=== PATIENT | male | born 1955 | race Caucasian/White ===

== ENCOUNTER 2024-10-16 06:25 | Day surgery (SDC) | payer MEDICARE, SELFPAY ==
[2024-10-16 07:55] LABS: Glucose - Point of Care 113 mg/dl (70-99)
== END 2024-10-16 10:09 | disposition home or self-care (01) ==
LOC: GI 06:25
PROVIDERS: ATTENDING PHYSICIAN Internal Medicine
DX: Z12.11 Encounter for screening for malignant neoplasm of colon (principal); K57.30 Diverticulosis of large intestine without perforation or abscess without bleeding; R10.13 Epigastric pain; K44.9 Diaphragmatic hernia without obstruction or gangrene; K21.00 Gastro-esophageal reflux disease with esophagitis, without bleeding; K31.89 Other diseases of stomach and duodenum
CPT/HCPCS: 45380; 43239; 82962; 88305; 88342

== ENCOUNTER 2025-01-22 06:16 | Day surgery (SDC) | payer MEDICARE, SELFPAY ==
[2025-01-22 07:55] LABS: Glucose - Point of Care 113 mg/dl (70-99)
== END 2025-01-22 08:00 | disposition home or self-care (01) ==
LOC: GI 06:16
PROVIDERS: ATTENDING PHYSICIAN Internal Medicine
DX: R10.13 Epigastric pain (principal); Z53.9 Procedure and treatment not carried out, unspecified reason
CPT/HCPCS: 82962; G0378

== ENCOUNTER 2025-01-29 06:20 | Day surgery (SDC) | payer MEDICARE, SELFPAY ==
[2025-01-29 08:37] LABS: Glucose - Point of Care 119 mg/dl (70-99)
== END 2025-01-29 09:47 | disposition home or self-care (01) ==
LOC: GI 06:20
PROVIDERS: ATTENDING PHYSICIAN Internal Medicine
DX: K21.00 Gastro-esophageal reflux disease with esophagitis, without bleeding (principal); K44.9 Diaphragmatic hernia without obstruction or gangrene; K22.89 Other specified disease of esophagus
CPT/HCPCS: 43239; 82962; 88305

== ENCOUNTER → 2025-04-22 07:29 | Outpatient (REF) | payer MEDICARE, SELFPAY | LOC: RAD 07:29 | PROVIDERS: ATTENDING PHYSICIAN Internal Medicine Hematology & Oncology; FAMILY PHYSICIAN Internal Medicine | DX: D75.1 Secondary polycythemia (principal) | CPT/HCPCS: 76700 ==